=== PATIENT | female | born 1950 | race Two or more races ===

== ENCOUNTER → 2025-09-08 | Outpatient (CLI) | payer OTHER, MEDICAID ==
--- NOTE | 2025-09-08 21:34 | DVH ---
NM NM BONE 3 PHASE HISTORY: HISTORY OF RIGHT KNEE JOINT REPLACEMENT COMPARISON: None TECHNIQUE: 22.1 millicuries of technetium 99m MDP were injected intravenously. Blood flow and blood p ool images were obtained of the bilateral knees. Delayed planar images were obtained of the bilateral knees. FINDINGS: The blood flow images appear normal with no areas of increased flow. Marginal activity along bilateral knee arthroplasties with the associated blood pool and delayed upta ke IMPRESSION: 1. No increased definitive blood flow ruling out active periprosthetic joint infection or soft tissue abnormality or acute fracture. 2. Consideration for more multifocal areas of mechanical stress.
== END | disposition home or self-care (01) ==
LOC: XYW 07:16
PROVIDERS: ATTEND Orthopaedic Surgery Adult Reconstructive Orthopaedic Surgery
DX: Z96.651 Presence of right artificial knee joint (principal)
CPT/HCPCS: 78315; A9503